=== PATIENT | male | born 1975 | race Caucasian/White ===

== ENCOUNTER → 2019-10-06 | Outpatient (CLI) | payer OTHER ==
--- NOTE | 2019-10-06 14:42 | RAD ---
3 views the cervical spine without comparison for cervical neuritis. FINDINGS: There is straightening of the normal cervical lordosis. The atlantoaxial articulation is intact. Prevertebral soft tissues are grossly unremarkable. No alignment abnormality. Mild degenerative disc disease at C4-5. IMPRESSION: 1. No acute osseous or alignment abnormality. 2. Straightening of normal cervical lordosis. 3. Mild degenerative disc disease at C4-5. Electronically signed by: Kavin Nichols MD (10/06/2019 2:39 PM) [id number]
== END | disposition home or self-care (01) ==
LOC: DXRAD 09:43
PROVIDERS: ATTEND Physician Assistant
DX: M50.121 Cervical disc disorder at C4-C5 level with radiculopathy (principal); M40.50 Lordosis, unspecified, site unspecified
CPT/HCPCS: 72040